=== PATIENT | female | born 1995 | race Caucasian/White ===

== ENCOUNTER 2018-05-29 16:14 | Emergency (ER) | payer OTHER, BC ==
[~2018-05-29] VITALS: Ht 167.6 cm; Wt 64.0 kg
[2018-05-29] MEDS ORDERED: DIPHTH,PERTUSS(ACELL),TET TOX 0.5 ML DISP.SYRIN. VAX IM ONE (17:00)
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
[2018-05-29] MEDS ORDERED: IBUPROFEN 400 MG TABLET. PO ONE (17:30)
[2018-05-29] MEDS ORDERED: NEOMY/BACITR/POLYMYXIN OINT PACKET. TP ONE (18:01)
[2018-05-29] MEDS ORDERED: IBUP800T19 PO (18:07)
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
[2018-05-29 18:13] VITALS: BP 128/65
== END 2018-05-29 18:12 | disposition home or self-care (01) ==
LOC: ER 16:14
DX: S60.212A Contusion of left wrist, initial encounter (principal); S90.32XA Contusion of left foot, initial encounter; S80.212A Abrasion, left knee, initial encounter; V43.52XA Car driver injured in collision with other type car in traffic accident, initial encounter; Y93.I9 Activity, other involving external motion; Y92.488 Other paved roadways as the place of occurrence of the external cause; Y99.8 Other external cause status
CPT/HCPCS: 73562; 73630; 90471; 90715; 99284-25

== ENCOUNTER 2019-02-04 11:37 | Emergency (ER) | payer BC, OTHER ==
[~2019-02-04] VITALS: Ht 162.6 cm; Wt 59.9 kg
[~2019-02-04 11:37] MED LIST: IBUP800T19 PO
[2019-02-04] MEDS ORDERED: IV NORMAL SALINE 1,000ML 1,000 ML IV ONE (12:00)
[2019-02-04] MEDS ORDERED: SODIUM PHOSPHATES 19/7GM 133 ML ENEMA. PR ONE (12:15)
--- NOTE | 2019-02-04 12:17 | RAD ---
Examination: Single frontal view of the abdomen HISTORY: History of constipation for 2 weeks COMPARISON: None available FINDINGS: The bowel gas pattern appears unremarkable. Moderate amount of feces and gas noted in the colon and the rectum likely constipation. IMPRESSION: Feces identified in the colon and rectum likely constipation. Electronically signed by: Pipo Goff MD (02/04/2019 12:14 PM) [id number]
[2019-02-04 12:18] LABS: BASO # 0.1 x10^3/uL (0.0-0.2); BASO % 1 % (0-3); EOS # 0.6 x10^3/uL (0.0-0.7); EOS % 7 % (0-3); HEMATOCRIT 43.6 % (36.0-47.0); HEMOGLOBIN 14.8 g/dL (12.0-15.5); LYMPH # 1.9 x10^3/uL (1.0-4.8); LYMPH % 24 % (24-48); MEAN CORPUSCULAR HEMOGLOBIN 31 pg (25-35); MEAN CORPUSCULAR HGB CONC 34 g/dL (31-37); MEAN CORPUSCULAR VOLUME 92 fL (79-100); MONO # 0.6 x10^3/uL (0.0-1.1); MONO % 8 % (0-9); NEUT # 4.8 x10^3uL (1.8-7.7); NEUT % 61 % (31-73); PLATELET COUNT 185 x10^3/uL (140-400); RED BLOOD COUNT 4.74 x10^6/uL (3.50-5.40); RED CELL DISTRIBUTION WIDTH 12.9 % (11.5-14.5); WHITE BLOOD COUNT 7.9 x10^3/uL (4.0-11.0)
[2019-02-04 12:22] LABS: BACTERIA,URINE 0 /HPF (0-FEW); BILIRUBIN,URINE NEG (NEG); CLARITY,URINE CLEAR; COLOR,URINE STRAW; GLUCOSE,URINE NEG (NEG); NITRITE,URINE NEG (NEG); RBC,URINE 0 /HPF (0-2); SQUAMOUS EPITHELIAL CELL,UR FEW /LPF; UROBILINOGEN,URINE 0.2 mg/dL (0.2 mg/dL); WBC,URINE 0 /HPF (0-4)
--- NOTE | 2019-02-04 12:25 | PHYS DOC ---
Past History Past Medical History: Other Past Surgical History: No Surgical History Smoking: Non-smoker Alcohol Use: None Drug Use: None Adult General Chief Complaint Chief Complaint: CONSTIPATION HPI HPI 23-year-old female presents with constipation. The patient states that she has not had a bowel movement nearly 2 weeks. She frequently goes multiple days and up to a week. 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 She is not taking anything regularly for constipation. Her last stool was hard and she had some minor rectal bleeding. She has not had any bleeding since that time. Patient did try to use stool softener/laxative pills yesterday but it did not help. She now feels like there is much more pressure in her lower pelvis, but she is unable to go. The patient does not drink very much water. She drinks several energy drinks a day. She denies any opiate use. She has not had nausea or vomiting. She denies fever or chills. Review of Systems Review of Systems Constitutional: Denies fever or chills [] Eyes: Denies change in visual acuity, redness, or eye pain [] HENT: Denies nasal congestion or sore throat [] Respiratory: Denies cough or shortness of breath [] Cardiovascular: No additional information not addressed in HPI [] GI: Lower abdominal fullness. Denies nausea, vomiting, bloody stools or diarrhea [] : Denies dysuria or hematuria [] Musculoskeletal: Denies back pain or joint pain [] Integument: Denies rash or skin lesions [] Neurologic: Denies headache, focal weakness or sensory changes [] Endocrine: Denies polyuria or polydipsia [] All other systems were reviewed and found to be within normal limits, except as documented in this note. Current Medications Current Medications Current Medications Medications (Trade) Dose Ordered Sig/Gorge Start Time Stop Time Status Last Admin Dose Admin Sodium Biphosphate/ Sodium Phosphate (Fleet Adult) 133 ml 1X ONCE 02/04/19 12:15 02/04/19 12:17 DC Sodium Chloride 1,000 ml @ 1,000 mls/hr 1X ONCE 02/04/19 12:00 02/04/19 12:59 Allergies Allergies Allergies Coded Allergies Type Severity Reaction Last Updated Verified No Known Drug Allergies 06/11/14 No Physical Exam Physical Exam Constitutional: Well developed, well nourished, no acute distress, non-toxic appearance. [] HENT: Normocephalic, atraumatic, bilateral external ears normal, oropharynx moist, no oral exudates, nose normal. [] Eyes: PERRLA, EOMI, conjunctiva normal, no discharge. [] Neck: Normal range of motion, no tenderness, supple, no stridor. [] Cardiovascular:Heart rate regular rhythm, no murmur [] Lungs & Thorax: Bilateral breath sounds clear to auscultation [] Abdomen: Bowel sounds normal, soft, no tenderness, no masses, no pulsatile masses. [] Skin: Warm, dry, no erythema, no rash. [] Back: No tenderness, no CVA tenderness. [] Extremities: No tenderness, no cyanosis, no clubbing, ROM intact, no edema. [] Neurologic: Alert and oriented X 3, normal motor function, normal sensory function, no focal deficits noted. [] Psychologic: Affect normal, judgement normal, mood normal. Rectal: Normal external exam. Firm stool in rectal vault. [] Current Patient Data Lab Results Laboratory Tests Test 02/04/19 11:59 02/04/19 12:05 POC Urine HCG, Qualitative hcg negative (Negative) White Blood Count 7.9 x10^3/uL (4.0-11.0) Red Blood Count 4.74 x10^6/uL (3.50-5.40) Hemoglobin 14.8 g/dL (12.0-15.5) Hematocrit 43.6 % (36.0-47.0) Mean Corpuscular Volume 92 fL (79-100) Mean Corpuscular Hemoglobin 31 pg (25-35) Mean Corpuscular Hemoglobin Concent 34 g/dL (31-37) Red Cell Distribution Width 12.9 % (11.5-14.5) Platelet Count 185 x10^3/uL (140-400) Neutrophils (%) (Auto) 61 % (31-73) Lymphocytes (%) (Auto) 24 % (24-48) Monocytes (%) (Auto) 8 % (0-9) Eosinophils (%) (Auto) 7 % (0-3) H Basophils (%) (Auto) 1 % (0-3) Neutrophils # (Auto) 4.8 x10^3uL (1.8-7.7) Lymphocytes # (Auto) 1.9 x10^3/uL (1.0-4.8) Monocytes # (Auto) 0.6 x10^3/uL (0.0-1.1) Eosinophils # (Auto) 0.6 x10^3/uL (0.0-0.7) Basophils # (Auto) 0.1 x10^3/uL (0.0-0.2) EKG EKG [] Radiology/Procedures Radiology/Procedures [] Impressions: Examination: Single frontal view of the abdomen HISTORY: History of constipation for 2 weeks COMPARISON: None available FINDINGS: The bowel gas pattern appears unremarkable. Moderate amount of feces and gas noted in the colon and the rectum likely constipation. IMPRESSION: Feces identified in the colon and rectum likely constipation. Electronically signed by: Pipo Goff MD (02/04/2019 12:14 PM) [id number] DICTATED AND SIGNED BY: PIPO GOFF MD DATE: 02/04/19 1214 CC: AVELINA COX DO; JOSE MIGUEL BARCENAS MD ~ Course & Med Decision Making Course & Med Decision Making Pertinent Labs and Imaging studies reviewed. (See chart for details) The patient's rectal exam did reveal firm stool in the rectal vault. I manually work this up and removed symptoms. Patient will receive an enema and then we will use magnesium citrate. The patient did have stool in the ED. She will finish the bottle magnesium citrate at home. She drank about half of it in the ED. I have given her direction drinking more water without caffeine and starting a daily bowel regimen. She is stable for discharge at this time. She will follow up with her primary care physician and/or GI if this plan as not effective. [] Dragon Disclaimer Dragon Disclaimer This electronic medical record was generated, in whole or in part, using a voice recognition dictation system. Departure Departure: Impression: Primary Impression: Constipation by delayed colonic transit Disposition: 01 HOME, SELF-CARE Condition: STABLE Referrals: JOSE MIGUEL BARCENAS MD (PCP) Patient Instructions: Constipation, Adult, [id number] AVELINA COX DO Feb 04, 2019 12:25
[2019-02-04 12:37] LABS: ALBUMIN 4.5 g/dL (3.4-5.0); ALBUMIN/GLOBULIN RATIO 1.3 (1.0-1.7); CALCIUM 9.3 mg/dL (8.5-10.1); POTASSIUM 3.9 mmol/L (3.5-5.1); TOTAL BILIRUBIN 0.7 mg/dL (0.2-1.0); TOTAL PROTEIN 7.9 g/dL (6.4-8.2)
[2019-02-04] MEDS ORDERED: MAGNESIUM CITRATE 296 ML SOLUTION. PO ONE (12:45)
[2019-02-04 13:35] VITALS: BP 102/56
== END 2019-02-04 13:37 | disposition home or self-care (01) ==
LOC: ER 11:37
DX: K59.01 Slow transit constipation (principal); K62.5 Hemorrhage of anus and rectum
CPT/HCPCS: 36415; 74018; 80053; 81001; 81025; 85025; 99285-25; J7030

== ENCOUNTER 2020-02-05 19:07 | Emergency (ER) | payer BC ==
[~2020-02-05] VITALS: Ht 162.6 cm; Wt 64.5 kg
[2020-02-05 19:18] VITALS: BP 113/73
[2020-02-05] MEDS ORDERED: IV NORMAL SALINE 1,000ML 1,000 ML IV ONE (19:30)
[2020-02-05] MEDS ORDERED: ONDANSETRON PF 4 MG/2 ML VIAL. IVP ONE (19:30)
[2020-02-05 19:58] LABS: BILIRUBIN,URINE NEG (NEG); CLARITY,URINE CLEAR; COLOR,URINE STRAW; GLUCOSE,URINE NEG (NEG)
[2020-02-05 19:59] LABS: NITRITE,URINE NEG (NEG); UROBILINOGEN,URINE 0.2 mg/dL (0.2 mg/dL)
--- NOTE | 2020-02-05 20:02 | PHYS DOC ---
Past History Past Medical History: Other Additional Past Medical Histor: Long QT syndrome Past Surgical History: No Surgical History Smoking: Less than 1pk/day Alcohol Use: None Drug Use: Marijuana General Adult EDM: Chief Complaint: SHORTNESS OF BREATH HPI: HPI: Patient is a 24 year old female who presents for evaluation of shortness of air and anxiety. She had progressing symptoms earlier today. She also has a mild nonproductive cough. Furthermore she has been having nausea vomiting and diarrhea as well as abdominal cramping. Patient was moderately anxious on arrival. She has generalized weakness. She has no known exposure to anyone ill including the COVID-19 virus. Patient is not toxic appearing and is otherwise healthy. Last menstrual cycle was 3 weeks ago. Patient has a lot of tingling and numbness prior to arrival as well in her hands Review of Systems: Review of Systems: Constitutional: Denies fever or chills Eyes: Denies change in visual acuity HENT: Denies nasal congestion or sore throat Respiratory: Has cough and shortness of breath Cardiovascular: Denies chest pain or edema GI: has abdominal pain with nausea, vomiting, no bloody stools has diarrhea : Denies dysuria Musculoskeletal: Denies back pain or joint pain Integument: Denies rash Neurologic: Denies headache, focal weakness or sensory changes Endocrine: Denies polyuria or polydipsia Lymphatic: Denies swollen glands Psychiatric: moderate initial anxiety Heart Score: Risk Factors: Risk Factors: DM, Current or recent (<one month) smoker, HTN, HLP, family history of CAD, obesity. Risk Scores: Score 0 - 3: 2.5% MACE over next 6 weeks - Discharge Home Score 4 - 6: 20.3% MACE over next 6 weeks - Admit for Clinical Observation Score 7 - 10: 72.7% MACE over next 6 weeks - Early Invasive Strategies Current Medications: Current Meds: Current Medications Medications (Trade) Dose Ordered Sig/Gorge Start Time Stop Time Status Last Admin Dose Admin Ondansetron HCl (Zofran) 4 mg 1X ONCE 02/05/20 19:30 02/05/20 19:31 DC 02/05/20 19:43 4 MG Sodium Chloride 1,000 ml @ 1,000 mls/hr 1X ONCE 02/05/20 19:30 02/05/20 20:29 02/05/20 19:40 1,000 MLS/HR Allergies: Allergies: Allergies Coded Allergies Type Severity Reaction Last Updated Verified No Known Drug Allergies 06/11/14 No Physical Exam: PE: Constitutional: Well developed, well nourished, no acute distress, non-toxic appearance. [] HENT: Normocephalic, atraumatic, bilateral external ears normal, oropharynx moist, no oral exudates, nose normal. [] Eyes: PERRLA, EOMI, conjunctiva normal, no discharge. [] Neck: Normal range of motion, no tenderness, supple, no stridor. [] Cardiovascular:Heart rate regular rhythm, no murmur [] Lungs & Thorax: Bilateral breath sounds clear to auscultation [] Abdomen: Bowel sounds normal, soft, no tenderness, no masses, no pulsatile masses. [] Skin: Warm, dry, no erythema, no rash. [] Back: No tenderness, no CVA tenderness. [] Extremities: No tenderness, no cyanosis, no clubbing, ROM intact, no edema. [] Neurologic: Alert and oriented X 3, normal motor function, normal sensory function, no focal deficits noted. [] Psychologic: Affect normal, judgement normal, mood normal. [] Current Patient Data: Labs: Laboratory Tests Test 02/05/20 19:36 POC Urine HCG, Qualitative hcg negative (Negative) Vital Signs: Vital Signs Date Time Temp Pulse Resp B/P (MAP) Pulse Ox O2 Delivery O2 Flow Rate FiO2 02/05/20 19:18 98.0 73 28 113/73 (86) 100 Room Air EKG: EKG: [] Radiology/Procedures: Radiology/Procedures: CXR: Reviewed by me showed no acute findings, no pneumothorax, no obvious infiltrates. It has not yet been reviewed by radiology at 2053 Course & Med Decision Making: Course & Med Decision Making Pertinent Labs and Imaging studies reviewed. (See chart for details) 2054 stable, feeling much better at this time. CBC reviewed by me showed no acute findings, also CBC, lipase, urinalysis was also normal. Patient is not . Considerations include anxiety attack, gastroenteritis, pancreatitis, surgical abdomen, patient does not have tenderness in the right lower quadrant however. No indication at this point for advanced x-rays such as CT scan. Patient is benign-appearing at this time. Prescription for Zofran given Dragon Disclaimer: Dragon Disclaimer: This electronic medical record was generated, in whole or in part, using a voice recognition dictation system. Departure Departure: Impression: Primary Impression: Gastroenteritis Additional Impressions: Dyspnea Panic attack Disposition: HOME, SELF-CARE Condition: STABLE Referrals: PCP,FAISAL (PCP) LIMA ROWLAND MD Patient Instructions: Anxiety and Panic Attacks, [id number], Viral Gastroenteritis Additional Instructions: Drink plenty fluids, rest, see your doctor right away and follow-up as needed. Take medication as directed, bland diet Scripts Ondansetron Hcl (ZOFRAN) 4 Mg Tablet 1 TAB PO PRN Q6HRS PRN for NAUSEA, #8 TAB Prov: NATALIA GARZA DO 02/05/20 NATALIA GARZA DO Feb 05, 2020 20:02
[2020-02-05 20:06] LABS: CALCIUM 9.3 mg/dL (8.5-10.1); CREATININE 0.8 mg/dL (0.6-1.0); GFR 89.7; POTASSIUM 3.6 mmol/L (3.5-5.1)
[2020-02-05 20:08] LABS: BACTERIA,URINE FEW /HPF (0-FEW); RBC,URINE 0 /HPF (0-2); SQUAMOUS EPITHELIAL CELL,UR FEW /LPF; U PREG PATIENT NEGATIVE (NEG); WBC,URINE 0 /HPF (0-4)
[2020-02-05 20:12] LABS: ALBUMIN 4.3 g/dL (3.4-5.0); ALBUMIN/GLOBULIN RATIO 1.3 (1.0-1.7); TOTAL BILIRUBIN 0.6 mg/dL (0.2-1.0); TOTAL PROTEIN 7.5 g/dL (6.4-8.2)
[2020-02-05 20:21] LABS: BASO # 0.1 x10^3/uL (0.0-0.2); BASO % 1 % (0-3); EOS # 0.1 x10^3/uL (0.0-0.7); EOS % 1 % (0-3); HEMATOCRIT 42.6 % (36.0-47.0); HEMOGLOBIN 14.4 g/dL (12.0-15.5); LYMPH # 0.8 x10^3/uL (1.0-4.8); LYMPH % 9 % (24-48); MEAN CORPUSCULAR HEMOGLOBIN 32 pg (25-35); MEAN CORPUSCULAR HGB CONC 34 g/dL (31-37); MEAN CORPUSCULAR VOLUME 93 fL (79-100); MONO # 0.3 x10^3/uL (0.0-1.1); MONO % 3 % (0-9); NEUT # 7.5 x10^3uL (1.8-7.7); NEUT % 86 % (31-73); PLATELET COUNT 211 x10^3/uL (140-400); RED BLOOD COUNT 4.56 x10^6/uL (3.50-5.40); RED CELL DISTRIBUTION WIDTH 12.7 % (11.5-14.5); WHITE BLOOD COUNT 8.8 x10^3/uL (4.0-11.0)
[2020-02-05] MEDS ORDERED: ONDA4TAB7 PO (21:02)
--- NOTE | 2020-02-05 21:13 | RAD ---
Exam: Chest one INDICATION: Short of air TECHNIQUE: Frontal view of the chest Comparisons: None FINDINGS: The cardiomediastinal silhouette and pulmonary vessels are within normal limits. The lung and pleural spaces are clear. IMPRESSION: No acute cardiopulmonary process. Electronically signed by: Cristine Helms MD (02/05/2020 9:10 PM) [id number]
== END 2020-02-05 21:08 | disposition home or self-care (01) ==
LOC: ER 19:07
DX: K52.9 Noninfective gastroenteritis and colitis, unspecified (principal); F41.0 Panic disorder [episodic paroxysmal anxiety]; F17.200 Nicotine dependence, unspecified, uncomplicated
CPT/HCPCS: 36415; 71045; 80053; 81001; 81025; 83690; 85025; 96361; 96374; 99284; J2405; J7030